=== PATIENT | male | born 2005 | race Caucasian/White ===

== ENCOUNTER 2024-10-29 16:16 | Emergency (ER) | payer OTHER, SELFPAY ==
[2024-10-29 16:21] VITALS: BP 133/88; PULSE 90; TEMP 37.3; O2SAT 100; BMI 23.1
--- NOTE | 2024-10-29 16:36 | ED.SKABFB1 ---
HPI - Skin/Abscess/Foreign Bdy General Chief complaint: Skin/Abscess/Foreign Body Stated complaint: ABSESS UNDER ARM Time Seen by Provider: 10/29/24 16:25 Source: patient Mode of arrival: walk-in Limitations: no limitations History of Present Illness HPI narrative: The patient is 19-year-old male is coming to the ER with bilateral painful lumps in his axilla bilaterally, he mentioned that he noted that mostly in the right and the left side in the same time he denies any shaving or any other concerns No fever no chills no other complaint and the patient mentioned that he had something similar almost few months ago that got better by itself Related Data Home Medications ?Medication ?Instructions ?Recorded ?Confirmed omeprazole 20 mg capsule,delayed 20 mg PO DAILY 10/29/24 10/29/24 release Previous Rx's ?Medication ?Instructions ?Recorded amoxicillin 875 mg-potassium 1 tab PO Q12H #14 tabs 10/29/24 clavulanate 125 mg tablet ibuprofen 600 mg tablet 600 mg PO Q8H PRN pain #20 tabs 10/29/24 Allergies Allergy/AdvReac Type Severity Reaction Status Date / Time azithromycin Allergy Intermediate Vomiting Verified 10/29/24 16:23 Review of Systems ROS Status of ROS 10 or more systems reviewed and unremarkable except as noted in history and below PFSH PFSH Social History Little interest or pleasure in doing things: not at all Feeling down, depressed, or hopeless: not at all Exam Narrative Exam Narrative: Nurses notes and vital signs reviewed and patient is not hypoxic. General: Well-appearing and in no apparent distress. Skin: Skin examination of the axilla biopsy showed that the patient had on the right side almost 3 folliculitis spots that measuring 2 to 3 mm red and tender and there is no fluctuation, the patient also have a very long armpit hair The patient on the left side also had 2 spots that almost 2 to 3 mm area also the same presentation Constitutional Vital Signs, click to edit/add: Last Vital Signs Temp 99.1 F 10/29/24 16:21 Pulse 90 10/29/24 16:21 Resp 16 10/29/24 16:21 BP 133/88 10/29/24 16:21 Pulse Ox 100 10/29/24 16:21 O2 Del Method Room Air 10/29/24 16:21 Course Vital Signs Vital signs: Vital Signs Temperature 99.1 F 10/29/24 16:21 Pulse Rate 90 10/29/24 16:21 Respiratory Rate 16 10/29/24 16:21 Blood Pressure 133/88 10/29/24 16:21 Pulse Oximetry 100 10/29/24 16:21 Oxygen Delivery Method Room Air 10/29/24 16:21 Temperature 99.1 F 10/29/24 16:21 Pulse Rate 90 10/29/24 16:21 Respiratory Rate 16 10/29/24 16:21 Blood Pressure 133/88 10/29/24 16:21 Pulse Oximetry 100 10/29/24 16:21 Oxygen Delivery Method Room Air 10/29/24 16:21 MDM - Skin/Abscess/Foreign Bdy MDM Narrative Medical decision making narrative: Right now the patient presentation is mostly secondary folliculitis he was started on antibiotic as well as ibuprofen for pain instructed about monitoring his symptoms He is to come to the ER again in case of the increase in the size of the pain or any fever The patient is to follow up with primary care physician in next 2-3 days or to return to the emergency department should any of the signs or symptoms worsen or new symptoms develop. The patient agrees with the following Diagnosis and Treatment plan and the patient will be discharged home. Patient was started on Augmentin as well as ibuprofen Discharge Plan Discharge Chief Complaint: Skin/Abscess/Foreign Body Clinical Impression: Folliculitis Patient Disposition: Home, Self-Care Time of Disposition Decision: 16:36 Condition: Good Mode of Transportation: Private Vehicle Prescriptions / Home Meds: New ibuprofen 600 mg tablet 600 mg PO Q8H PRN (Reason: pain) Qty: 20 0RF amoxicillin-pot clavulanate 875-125 mg tablet 1 tab PO Q12H Qty: 14 0RF No Action omeprazole 20 mg capsule,delayed release(DR/EC) 20 mg PO DAILY Print Language: Kyr[place]z Instructions: Folliculitis (ED) Discharge Date/Time: 10/29/24 16:42
== END 2024-10-29 16:42 | disposition home or self-care (01) ==
LOC: ER 16:49
PROVIDERS: Emergency Provider Emergency Medicine
DX: L73.9 Follicular disorder, unspecified (principal)
CPT/HCPCS: 99283